=== PATIENT | male | born 1985 | race American Indian/Alaskan Native ===

== ENCOUNTER 2017-08-15 06:05 | Emergency (ER) | payer SELFPAY ==
[2017-08-15 07:57] VITALS: BP 123/81
--- NOTE | 2017-08-15 10:05 | Emergency Department Report ---
ED ENT HPI - General Chief complaint: Sore Throat Stated complaint: SORE THROAT Time Seen by Provider: 08/15/17 09:53 Source: patient Mode of arrival: Ambulatory Limitations: No Limitations - History of Present Illness Initial comments: Patient is a 31-year-old -Citizen Of [place] male who is presenting with sore throat for the past week. Patient states he's had subjective fevers and mild cough is nonproductive and sore throat. Patient states it hurts when he swallows. The patient denies any nausea vomiting diarrhea headache at this time. MD complaint: sore throat, difficulty swallowing Severity scale (0 -10): 6 - Related Data Previous Rx's Medication Instructions Recorded Last Taken Type Ranitidine HCl [Zantac 150 MG TAB] 150 mg PO Q12H #60 tablet 02/17/15 Unknown Rx Azithromycin [Zithromax Z-BERTA] 250 mg PO DAILY #6 tablet 08/15/17 Unknown Rx HYDROcodone/APAP 5-325 [[place] 1 each PO Q4HR PRN #12 tablet 08/15/17 Unknown Rx 5/325] Neomy/Polymyx B/Hc Opth Susp 1 drop OD Q6HR #1 bottle 08/15/17 Unknown Rx [Cortisporin (OPTH) Susp] predniSONE [Deltasone] 20 mg PO QDAY #5 tab 08/15/17 Unknown Rx Allergies Allergy/AdvReac Type Severity Reaction Status Date / Time No Known Allergies Allergy Verified 02/16/15 23:51 ED Dental HPI - General Chief complaint: Sore Throat Stated complaint: SORE THROAT Time Seen by Provider: 08/15/17 09:53 Source: patient Mode of arrival: Ambulatory Limitations: No Limitations - Related Data Previous Rx's Medication Instructions Recorded Last Taken Type Ranitidine HCl [Zantac 150 MG TAB] 150 mg PO Q12H #60 tablet 02/17/15 Unknown Rx Azithromycin [Zithromax Z-BERTA] 250 mg PO DAILY #6 tablet 08/15/17 Unknown Rx HYDROcodone/APAP 5-325 [[place] 1 each PO Q4HR PRN #12 tablet 08/15/17 Unknown Rx 5/325] Neomy/Polymyx B/Hc Opth Susp 1 drop OD Q6HR #1 bottle 08/15/17 Unknown Rx [Cortisporin (OPTH) Susp] predniSONE [Deltasone] 20 mg PO QDAY #5 tab 08/15/17 Unknown Rx Allergies Allergy/AdvReac Type Severity Reaction Status Date / Time No Known Allergies Allergy Verified 02/16/15 23:51 ED Review of Systems ROS: Stated complaint: SORE THROAT Other details as noted in HPI Comment: All other systems reviewed and negative ED Past Medical Hx - Past Medical History Previous Medical History?: No - Surgical History Past Surgical History?: No - Social History Smoking Status: Never Smoker Substance Use Type: Alcohol - Medications Home Medications: Home Medications Medication Instructions Recorded Confirmed Last Taken Type Ranitidine HCl [Zantac 150 MG TAB] 150 mg PO Q12H #60 tablet 02/17/15 Unknown Rx Azithromycin [Zithromax Z-BERTA] 250 mg PO DAILY #6 tablet 08/15/17 Unknown Rx HYDROcodone/APAP 5-325 [[place] 1 each PO Q4HR PRN #12 tablet 08/15/17 Unknown Rx 5/325] Neomy/Polymyx B/Hc Opth Susp 1 drop OD Q6HR #1 bottle 08/15/17 Unknown Rx [Cortisporin (OPTH) Susp] predniSONE [Deltasone] 20 mg PO QDAY #5 tab 08/15/17 Unknown Rx ED Physical Exam - General Limitations: No Limitations General appearance: alert, in no apparent distress - Head Head exam: Present: atraumatic, normocephalic - Eye Eye exam: Present: conjunctival injection - ENT ENT exam: Present: mucous membranes moist (his posterior pharynx erythema), other (anterior cervical lymph nodes) - Neck Neck exam: Present: normal inspection - Respiratory Respiratory exam: Present: normal lung sounds bilaterally. Absent: respiratory distress - Cardiovascular Cardiovascular Exam: Present: regular rate, normal rhythm. Absent: systolic murmur, diastolic murmur, rubs, gallop - GI/Abdominal GI/Abdominal exam: Present: soft, normal bowel sounds - Rectal Rectal exam: Present: deferred - Extremities Exam Extremities exam: Present: normal inspection - Back Exam Back exam: Present: normal inspection - Neurological Exam Neurological exam: Present: alert, oriented X3 - Psychiatric Psychiatric exam: Present: normal affect, normal mood - Skin Skin exam: Present: warm, dry, intact, normal color. Absent: rash ED Course Vital Signs 08/15/17 07:54 Temperature 98.1 F Pulse Rate 69 Respiratory 16 Rate Blood Pressure 123/81 O2 Sat by Pulse 98 Oximetry ED Medical Decision Making - Medical Decision Making Patient Centor criteria is high enough that the patient warrants treatment with antibiotics and patient will be discharged home this time. Critical care attestation.: If time is entered above; I have spent that time in minutes in the direct care of this critically ill patient, excluding procedure time. ED Disposition Clinical Impression: Pharyngitis Qualifiers: Pharyngitis/tonsillitis etiology: unspecified etiology Qualified Code(s): J02.9 - Acute pharyngitis, unspecified Disposition: TO HOME OR SELFCARE Is pt being admited?: No Does the pt Need Aspirin: No Condition: Stable Instructions: Pharyngitis (ED) Referrals: PRIMARY CARE, [Primary Care Provider] - 3-5 Days
== END 2017-08-15 10:12 | disposition home or self-care (01) ==
LOC: ED 06:05
DX: J02.9 Acute pharyngitis, unspecified (principal)
CPT/HCPCS: 99282

== ENCOUNTER 2018-10-18 16:37 | Emergency (ER) | payer OTHER ==
[2018-10-18 17:29] VITALS: BP 132/82
--- NOTE | 2018-10-18 17:36 | Emergency Department Report ---
ED ENT HPI - General Chief complaint: Dental/Oral Stated complaint: TOOTHACHE Source: patient Mode of arrival: Ambulatory Limitations: No Limitations - History of Present Illness Initial comments: 32 y/o male comes in for dental pain times 4 days. No fevers. Had Ibuprofen 3 hours ago. MD complaint: tooth pain Onset/Timin -: days(s) Location: tooth # (1) Severity scale (0 -10): 9 Quality: aching Consistency: constant Improves with: none Worsens with: none Context- Dental: history of dental caries, poor dental care Associated Symptoms: gum swelling. denies: fever, pain with swallowing, sore throat, tinnitus, hearing loss - Related Data Previous Rx's Medication Instructions Recorded Last Taken Type Ranitidine HCl [Zantac] 150 mg PO Q12H #60 tablet 02/17/15 Unknown Rx Azithromycin [Zithromax Z-BERTA] 250 mg PO DAILY #6 tablet 08/15/17 Unknown Rx HYDROcodone/APAP 5-325 [[place] 1 each PO Q4HR PRN #12 tablet 08/15/17 Unknown Rx 5/325] Neomy/Polymyx B/Hc Opth Susp 1 drop OD Q6HR #1 bottle 08/15/17 Unknown Rx [Cortisporin (OPTH) Susp] predniSONE [Deltasone] 20 mg PO QDAY #5 tab 08/15/17 Unknown Rx Clindamycin [Clindamycin CAP] 150 mg PO Q8HR #30 capsule 10/18/18 Unknown Rx Ibuprofen [Motrin 600 MG tab] 600 mg PO Q8H PRN #30 tablet 10/18/18 Unknown Rx Allergies Allergy/AdvReac Type Severity Reaction Status Date / Time No Known Allergies Allergy Verified 10/18/18 17:29 ED Dental HPI - General Chief complaint: Dental/Oral Stated complaint: TOOTHACHE Source: patient Mode of arrival: Ambulatory Limitations: No Limitations - Related Data Previous Rx's Medication Instructions Recorded Last Taken Type Ranitidine HCl [Zantac] 150 mg PO Q12H #60 tablet 02/17/15 Unknown Rx Azithromycin [Zithromax Z-BERTA] 250 mg PO DAILY #6 tablet 08/15/17 Unknown Rx HYDROcodone/APAP 5-325 [[place] 1 each PO Q4HR PRN #12 tablet 08/15/17 Unknown Rx 5/325] Neomy/Polymyx B/Hc Opth Susp 1 drop OD Q6HR #1 bottle 08/15/17 Unknown Rx [Cortisporin (OPTH) Susp] predniSONE [Deltasone] 20 mg PO QDAY #5 tab 08/15/17 Unknown Rx Clindamycin [Clindamycin CAP] 150 mg PO Q8HR #30 capsule 10/18/18 Unknown Rx Ibuprofen [Motrin 600 MG tab] 600 mg PO Q8H PRN #30 tablet 10/18/18 Unknown Rx Allergies Allergy/AdvReac Type Severity Reaction Status Date / Time No Known Allergies Allergy Verified 10/18/18 17:29 ED Review of Systems ROS: Stated complaint: TOOTHACHE Other details as noted in HPI Comment: All other systems reviewed and negative ED Past Medical Hx - Past Medical History Previous Medical History?: No - Surgical History Past Surgical History?: No - Social History Smoking Status: Never Smoker Substance Use Type: Alcohol - Medications Home Medications: Home Medications Medication Instructions Recorded Confirmed Last Taken Type Ranitidine HCl [Zantac] 150 mg PO Q12H #60 tablet 02/17/15 Unknown Rx Azithromycin [Zithromax Z-BERTA] 250 mg PO DAILY #6 tablet 08/15/17 Unknown Rx HYDROcodone/APAP 5-325 [[place] 1 each PO Q4HR PRN #12 tablet 08/15/17 Unknown Rx 5/325] Neomy/Polymyx B/Hc Opth Susp 1 drop OD Q6HR #1 bottle 08/15/17 Unknown Rx [Cortisporin (OPTH) Susp] predniSONE [Deltasone] 20 mg PO QDAY #5 tab 08/15/17 Unknown Rx Clindamycin [Clindamycin CAP] 150 mg PO Q8HR #30 capsule 10/18/18 Unknown Rx Ibuprofen [Motrin 600 MG tab] 600 mg PO Q8H PRN #30 tablet 10/18/18 Unknown Rx ED Physical Exam - General Limitations: No Limitations General appearance: alert, in no apparent distress - Head Head exam: Present: atraumatic, normocephalic - Eye Eye exam: Present: normal appearance, EOMI - ENT ENT exam: Present: mucous membranes moist - Expanded ENT Exam Expanded Teeth exam: Present: dental tenderness # (1), gingival enlargement - Neck Neck exam: Present: normal inspection, full ROM - Extremities Exam Extremities exam: Present: normal inspection - Neurological Exam Neurological exam: Present: alert, oriented X3, normal gait - Psychiatric Psychiatric exam: Present: normal affect, normal mood - Skin Skin exam: Present: warm, dry, intact, normal color. Absent: rash ED Course Vital Signs 10/18/18 17:28 Temperature 98.2 F Pulse Rate 77 Respiratory 18 Rate Blood Pressure 132/82 [Right] O2 Sat by Pulse 97 Oximetry ED Medical Decision Making - Medical Decision Making 32 y/o male comes in for 4 day history of tooth pain. Patient will be discharged on Clindamycin and Ibuprofen. Critical care attestation.: If time is entered above; I have spent that time in minutes in the direct care of this critically ill patient, excluding procedure time. ED Disposition Clinical Impression: Pain, dental, Dental abscess Disposition: TO HOME OR SELFCARE Is pt being admited?: No Does the pt Need Aspirin: No Condition: Stable Instructions: Dental Abscess (ED) Additional Instructions: Complete antibiotics as prescribed and Ibuprofen for pain. Prescriptions: Clindamycin [Clindamycin CAP] 150 mg PO Q8HR #30 capsule Ibuprofen [Motrin 600 MG tab] 600 mg PO Q8H PRN #30 tablet PRN Reason: Pain Referrals: [facility] [Outside] - 3-5 Days [facility] [Outside] - 3-[address] [facility] [Outside] - 3-5 Days
== END 2018-10-18 18:00 | disposition home or self-care (01) ==
LOC: ED 16:37
DX: K04.7 Periapical abscess without sinus (principal); Z79.899 Other long term (current) drug therapy
CPT/HCPCS: 99282